=== PATIENT | female | born 2000 | race Caucasian/White ===

== ENCOUNTER 2022-09-28 14:46 | Emergency (ER) | payer BC ==
[~2022-09-28] VITALS: Ht 170.2 cm; Wt 90.7 kg
--- NOTE | 2022-09-28 15:00 | NUR ---
Jame AOx4, able to express her concerns. Javy states she has throat pain, and has had swollen toncills for over 1 year. Discussed plan of care, patient verbalized agreement.
[2022-09-28] MEDS ORDERED: KETOROLAC TROMETHAMINE INJ 30 MG/ML VIAL ONE (15:18)
[2022-09-28] MEDS ORDERED: DEXAMETHASONE SOD PHOSPHATE 10 MG/ML VIAL ONE (15:18)
[2022-09-28] MEDS ORDERED: KETOROLAC TROMETHAMINE INJ 60 MG/2 ML VIAL IM ONE (15:30)
[2022-09-28] MEDS ORDERED: DEXAMETHASONE SOD PHOSPHATE 4 MG/ML VIAL IM ONE (15:30)
--- NOTE | 2022-09-28 15:45 | NUR ---
STREP SWAB COLLECTED AND SENT TO LAB
[2022-09-28] MEDS ORDERED: LIDOCAINE VISCOUS 2% UD 15 ML UDC MM ONE (17:00)
[2022-09-28] MEDS ORDERED: LIDOCAINE 2%-EPI 1:100,000 30 ML VIAL TP ONE (17:00)
[2022-09-28] MEDS ORDERED: LIDOCAINE 2% 20 ML MDV ONE (17:02)
[2022-09-28] MEDS ORDERED: LIDOCAINE 2%-EPI 1:100,000 30 ML VIAL ONE (17:03)
[2022-09-28] MEDS ORDERED: TETRACAINE/BENZOCAINE/BUTAMBEN 56 GM SPRAY TP ONE ×2 (17:53→18:00)
[2022-09-28] MEDS ORDERED: CLIN300C12 PO (19:26)
[2022-09-28] MEDS ORDERED: FLUC150T PO (19:26)
[2022-09-28] MEDS ORDERED: IBUP-1955 PO (19:30)
[2022-09-28] MEDS ORDERED: PRED50TA PO (19:30)
[2022-09-28] MEDS ORDERED: NICO-676 TP (19:30)
[2022-09-28 19:45] VITALS: BP 115/68
== END 2022-09-28 19:45 | disposition home or self-care (01) ==
LOC: ER 15:04
DX: J36 Peritonsillar abscess (principal); F17.200 Nicotine dependence, unspecified, uncomplicated; Z88.0 Allergy status to penicillin; Z79.899 Other long term (current) drug therapy
CPT/HCPCS: 99284; 42700; 99406; 87880; 96372 ×2; J1100; J1885; J3490 ×2; 86403-TC